=== PATIENT | female | born 1990 | race Caucasian/White ===

== ENCOUNTER 2016-08-25 12:45 | Emergency (ER) | payer MEDICAID, OTHER ==
[~2016-08-25] VITALS: Ht 182.9 cm; Wt 86.2 kg
[~2016-08-25 12:45] MED LIST: ALPR0.5T PO; AMOX500T PO; BUPR75TA5 PO; ESCI5TAB8 PO; HYDR-971 PO; METH-37 PO; NAPR500T3 PO; PRED20TA PO; TRAM50TA PO
[2016-08-25 12:57] VITALS: BP 138/87
--- NOTE | 2016-08-25 13:15 | PHYS DOC ---
Past History Past Medical History: Anxiety, Depression Past Surgical History: Appendectomy Alcohol Use: None Drug Use: None Adult General Chief Complaint Chief Complaint: tooth pain HPI HPI Patient is a 25-year-old female brought in by a lady who she states is her [id number] for the complaint of tooth pain. Patient states that she has had a previous root canal in this tooth, and her dentist believes that she might have a root canal failure. Her dentist prescribed Tylenol 3 and referred her to a specialist. She has an appointment coming up on August 28. Her dentist did not want to put her on antibiotics, wanted the specialist to see her "without any antibiotics". Patient states she had one root canal about 2 years ago and another about 3 years ago. She previously had an eating disorder so has a lot of dental problems. Patient states in the past, tramadol caused her to have itching. Review of Systems Review of Systems Constitutional: Denies fever or chills [] HENT: Pain isolated to one tooth as in history of present illness Neurologic: Denies headache Allergies Allergies Allergies Coded Allergies Type Severity Reaction Last Updated Verified tramadol Allergy Mild Itching 08/25/16 Yes Physical Exam Physical Exam Constitutional: Well developed, well nourished, no acute distress, non-toxic appearance. Alert, mentating normally, no distress whatsoever, handling secretions normally, no difficulty talking. HENT: Normocephalic, atraumatic, bilateral external ears normal, oropharynx moist, no oral exudates, patient indicates pain in the right lower first molar. It appears to have a previous crown in place. There is no redness, no swelling, no drainage, around the base of the tooth or in the area of the root. Remainder of oral exam also unremarkable, nose normal. [] Eyes: conjunctiva normal, no discharge. [] Neck: Normal range of motion, no masses or lymphadenopathy, nontender to palpation, no stridor. [] Skin: Warm, dry, no erythema, no rash. [] Extremities: No tenderness, no cyanosis, no clubbing, ROM intact, no edema. [] Neurologic: Alert and oriented X 3, normal motor function, normal sensory function, no focal deficits noted. [] Current Patient Data Vital Signs Vital Signs Date Time Temp Pulse Resp B/P Pulse Ox O2 Delivery O2 Flow Rate FiO2 08/25/16 12:57 97.8 78 12 100 Room Air EKG EKG [] Radiology/Procedures Radiology/Procedures [] Course & Med Decision Making Course & Med Decision Making Pertinent Labs and Imaging studies reviewed. (See chart for details) 25-year-old female complains of tooth pain in a tooth with a previous root canal , states her dentist prescribed Tylenol No. 3 and she is out of it. I advised the patient that we are not able to offer any dental services, and if her dentist had avoided antibiotics, I do not see any clinical indication for antibiotics and I would withhold them at this time as well under her dentist's recommendation. I advised her that I don't believe further opiate therapy is indicated from the emergency department, discussed the use of ibuprofen 800 mg for pain. Despite having said on arrival that she had itching secondary to tramadol the past, she approached nursing staff asking if I would write her prescription for tramadol, was advised that prior itching is a contraindication to tramadol prescription as it may be an allergic reaction. I noted that the patient was last seen for tooth pain in February 2016 at which time she stated she was about to have a root canal. On history, however, she told me that she had a root canal 2 years ago and another one 3 years ago. I'm concerned with this inconsistency of history that there may be some element of drug-seeking behavior in this presentation. I explained to her that not typically prescribe opiates from the emergency department for dental complaints. She is discharged with the offer of her prescription for ibuprofen 800 mg but she declined that, states she has ibuprofen at home and can take that dosage. [] Dragon Disclaimer Dragon Disclaimer This chart was dictated in whole or in part using Voice Recognition software in a busy, high-work load, and often noisy Emergency Department environment. It may contain unintended and wholly unrecognized errors or omissions. Departure Departure: Impression: Primary Impression: Dentalgia Disposition: HOME, SELF-CARE Condition: STABLE Referrals: PCP,PÉREZ (PCP) Additional Instructions: As we discussed, ibuprofen 800 mg every 6-8 hours with food or drink for pain. Make sure you follow up with the specialist on Saturday that you were referred to. ALEXA AVILA MD Aug 25, 2016 13:15
== END 2016-08-25 13:24 | disposition home or self-care (01) ==
LOC: ER 12:45
DX: K08.89 Other specified disorders of teeth and supporting structures (principal); Z88.6 Allergy status to analgesic agent
CPT/HCPCS: 99281

== ENCOUNTER 2018-09-16 16:25 | Emergency (ER) | payer OTHER ==
[~2018-09-16] VITALS: Ht 182.9 cm; Wt 86.2 kg
[~2018-09-16 16:25] MED LIST changes: -ESCI5TAB8 PO; +HYDR-3165 PO; -HYDR-971 PO; +LEXAPRO5 MG PO; +NAPR-514 PO; -NAPR500T3 PO
[2018-09-16] MEDS ORDERED: IV NORMAL SALINE 1,000ML 1,000 ML IV ONE (16:45)
[2018-09-16 17:14] LABS: BASO # 0.1 x10^3/uL (0.0-0.2); BASO % 1 % (0-3); EOS # 0.2 x10^3/uL (0.0-0.7); EOS % 2 % (0-3); HEMATOCRIT 39.3 % (36.0-47.0); HEMOGLOBIN 13.6 g/dL (12.0-15.5); LYMPH # 2.1 x10^3/uL (1.0-4.8); LYMPH % 22 % (24-48); MEAN CORPUSCULAR HEMOGLOBIN 30 pg (25-35); MEAN CORPUSCULAR HGB CONC 35 g/dL (31-37); MEAN CORPUSCULAR VOLUME 85 fL (79-100); MONO # 0.7 x10^3/uL (0.0-1.1); MONO % 7 % (0-9); NEUT # 6.7 x10^3uL (1.8-7.7); NEUT % 69 % (31-73); PLATELET COUNT 230 x10^3/uL (140-400); RED BLOOD COUNT 4.61 x10^6/uL (3.50-5.40); RED CELL DISTRIBUTION WIDTH 12.9 % (11.5-14.5); WHITE BLOOD COUNT 9.8 x10^3/uL (4.0-11.0)
[2018-09-16 17:26] LABS: CALCIUM 9.2 mg/dL (8.5-10.1); CREATININE 0.6 mg/dL (0.6-1.0); GFR 119.9; MAGNESIUM 1.8 mg/dL (1.8-2.4); POTASSIUM 3.8 mmol/L (3.5-5.1)
[2018-09-16 17:30] VITALS: BP 136/86
--- NOTE | 2018-09-16 17:48 | PHYS DOC ---
Past History Past Medical History: Anxiety, Depression (CHRISTIAN FAM DO) Past Surgical History: Appendectomy (CHRISTIAN FAM DO) Smoking: Cigarettes Alcohol Use: None Drug Use: None (CHRISTIAN FAM DO) Adult General Chief Complaint Chief Complaint: VAGINAL BLEEDING HPI HPI 27-year-old female presents with 1 hour history of vaginal bleeding in . Patient reports she is approximately 11 weeks gestation. Per patient she has confirmed by her physician with prior ultrasound with good heartbeat. Denies vaginal discharge. Denies fever or chills. Denies known trauma. Denies nausea/vomiting/diarrhea. Denies lightheadedness or dizziness. (CHRISTIAN FAM DO) Review of Systems Review of Systems Constitutional: Denies fever or chills Eyes: Denies redness or eye pain HENT: Denies nasal congestion or sore throat Respiratory: Denies cough or shortness of breath Cardiovascular: Denies chest pain or palpitations GI: Denies abdominal pain, nausea, or vomiting /CLINICAL STAFF RN: Denies dysuria or hematuria; reports vaginal bleeding in Musculoskeletal: Denies back pain or joint pain Integument: Denies rash or skin lesions Neurologic: Denies headache, focal weakness or sensory changes Complete systems were reviewed and found to be within normal limits, except as documented in this note. (CHRISTIAN FAM DO) Current Medications Current Medications Current Medications Medications (Trade) Dose Ordered Sig/Sanna Start Time Stop Time Status Last Admin Dose Admin Sodium Chloride 1,000 ml @ 1,000 mls/hr 1X ONCE 09/16/18 16:45 09/16/18 17:44 DC 09/16/18 17:04 1,000 MLS/HR (CHRISTIAN FAM DO) Allergies Allergies Allergies Coded Allergies Type Severity Reaction Last Updated Verified tramadol Allergy Mild Itching 08/25/16 Yes (CHRISTIAN FAM DO) Physical Exam Physical Exam Constitutional: Well developed, well nourished, anxious, non-toxic appearance HENT: Normocephalic, atraumatic, oropharynx moist Eyes: PERRL, EOMI, conjunctiva normal, no discharge Neck: Normal range of motion, no tenderness, supple Cardiovascular: Heart rate normal, regular rhythm Lungs & Thorax: Bilateral breath sounds clear to auscultation, no wheezing Abdomen: Soft, no tenderness CLINICAL STAFF RN: Deferred to Dr. Saleh Skin: Warm, dry, no erythema, no rash Extremities: No tenderness, ROM intact, no edema Neurologic: Alert and oriented X 3, no focal deficits noted, Psychiatric: mood anxious; judgement normal (CHRISTIAN FAM DO) Current Patient Data Vital Signs Vital Signs Date Time Temp Pulse Resp B/P (MAP) Pulse Ox O2 Delivery O2 Flow Rate FiO2 09/16/18 16:50 98.2 103 16 97 Room Air Lab Results Laboratory Tests Test 09/16/18 16:57 White Blood Count 9.8 x10^3/uL (4.0-11.0) Red Blood Count 4.61 x10^6/uL (3.50-5.40) Hemoglobin 13.6 g/dL (12.0-15.5) Hematocrit 39.3 % (36.0-47.0) Mean Corpuscular Volume 85 fL (79-100) Mean Corpuscular Hemoglobin 30 pg (25-35) Mean Corpuscular Hemoglobin Concent 35 g/dL (31-37) Red Cell Distribution Width 12.9 % (11.5-14.5) Platelet Count 230 x10^3/uL (140-400) Neutrophils (%) (Auto) 69 % (31-73) Lymphocytes (%) (Auto) 22 % (24-48) L Monocytes (%) (Auto) 7 % (0-9) Eosinophils (%) (Auto) 2 % (0-3) Basophils (%) (Auto) 1 % (0-3) Neutrophils # (Auto) 6.7 x10^3uL (1.8-7.7) Lymphocytes # (Auto) 2.1 x10^3/uL (1.0-4.8) Monocytes # (Auto) 0.7 x10^3/uL (0.0-1.1) Eosinophils # (Auto) 0.2 x10^3/uL (0.0-0.7) Basophils # (Auto) 0.1 x10^3/uL (0.0-0.2) Sodium Level 136 mmol/L (136-145) Potassium Level 3.8 mmol/L (3.5-5.1) Chloride Level 101 mmol/L (98-107) Carbon Dioxide Level 22 mmol/L (21-32) Anion Gap 13 (6-14) Blood Urea Nitrogen 7 mg/dL (7-20) Creatinine 0.6 mg/dL (0.6-1.0) Estimated GFR (Cockcroft-Gault) 119.9 Glucose Level 96 mg/dL (70-99) Calcium Level 9.2 mg/dL (8.5-10.1) Magnesium Level 1.8 mg/dL (1.8-2.4) (CHRISTIAN FAM DO) EKG EKG [] (CHRISTIAN FAM DO) Radiology/Procedures Radiology/Procedures [] (CHRISTIAN FAM DO) Impressions: PROCEDURE: OB <14 WKS W/TV OB ultrasound dated 09/16/2018. No comparison available. CLINICAL INDICATION: Vaginal bleeding. FINDINGS: Transabdominal and transvaginal imaging was performed. Gestational sac and pole within the endometrial canal. [place]-rump length measures 4.5 cm, correlating with 11 week 2 day gestation. Gestational sac measures 4.7 cm, correlating with a 10 week 2 day gestation. Overall, the estimated sonographic gestational age is 10 weeks 6 days with estimated date of delivery of 04/08/2019. Gestational sac is normal in morphology. There is a moderate to large heterogeneous collection along the anterior margin of the gestational sac measures up to 5.6 cm maximum dimension. No internal color flow. And neck fluid volume appears appropriate. The placenta is not well evaluated. Yolk sac is seen. Heart rate 158 bpm. Right ovary measures 3.5 x 2.4 x 3.7 cm. Left ovary measures 4.3 x 3.7 x 1.6 cm. No adnexal mass or free fluid. IMPRESSION: 1. Single viable intrauterine gestation with estimated sonographic gestational age of 10 weeks 6 days. 2. Heterogeneous moderate size subchorionic hematoma, age indeterminate. Electronically signed by: Christian Wilson MD (09/16/2018 7:06 PM) [facility] (XENIA SALEH Jr. DO) Course & Med Decision Making Course & Med Decision Making Patient presents as Ab0 with report of vaginal bleeding in at approximately 11 weeks. Labs obtained and posted to chart. UA pending. Rh+. Pelvic exam pending. OB ultrasound also pending. Sign out given to Dr. Saleh for further evaluation and final disposition. Discussed current findings and plan with patient and family, who acknowledge understanding and agreement. (FAM,CHRISTIAN Griffin Disclaimer Dragon Disclaimer This electronic medical record was generated, in whole or in part, using a voice recognition dictation system. (CHRISTIAN FAM DO) Departure Departure: Impression: Primary Impression: Threatened miscarriage Additional Impression: Subchorionic hemorrhage Disposition: 01 HOME, SELF-CARE Condition: STABLE Referrals: CORIN PALOMARES APRN (PCP) Patient Instructions: Subchorionic Hematoma, Vaginal Bleeding During , First Trimester Problem Qualifiers Additional Impression: Subchorionic hemorrhage Fetus number: single or unspecified fetus Trimester: first trimester Qualified Codes: O41.8X10 - Other specified disorders of amniotic fluid and membranes, first trimester, not applicable or unspecified; O46.8X1 - Other antepartum hemorrhage, first trimester CHRISTIAN FAM DO September 16, 2018 17:48 XENIA SALEH Jr., DO September 16, 2018 19:20
--- NOTE | 2018-09-16 19:08 | RAD ---
OB ultrasound dated 09/16/2018. No comparison available. CLINICAL INDICATION: Vaginal bleeding. FINDINGS: Transabdominal and transvaginal imaging was performed. Gestational sac and pole within the endometrial canal. [place]-rump length measures 4.5 cm, correlating with 11 week 2 day gestation. Gestational sac measures 4.7 cm, correlating with a 10 week 2 day gestation. Overall, the estimated sonographic gestational age is 10 weeks 6 days with estimated date of delivery of 04/08/2019. Gestational sac is normal in morphology. There is a moderate to large heterogeneous collection along the anterior margin of the gestational sac measures up to 5.6 cm maximum dimension. No internal color flow. And neck fluid volume appears appropriate. The placenta is not well evaluated. Yolk sac is seen. Heart rate 158 bpm. Right ovary measures 3.5 x 2.4 x 3.7 cm. Left ovary measures 4.3 x 3.7 x 1.6 cm. No adnexal mass or free fluid. IMPRESSION: 1. Single viable intrauterine gestation with estimated sonographic gestational age of 10 weeks 6 days. 2. Heterogeneous moderate size subchorionic hematoma, age indeterminate. Electronically signed by: Christian Wilson MD (09/16/2018 7:06 PM) [facility]
[2018-09-16 19:35] LABS: BACTERIA,URINE MANY /HPF (0-FEW); BILIRUBIN,URINE NEG (NEG); CLARITY,URINE CLEAR; COLOR,URINE STRAW; GLUCOSE,URINE NEG (NEG); NITRITE,URINE POS (NEG); UROBILINOGEN,URINE 0.2 mg/dL (0.2 mg/dL)
[2018-09-16 19:36] LABS: SQUAMOUS EPITHELIAL CELL,UR OCC /LPF
== END 2018-09-16 19:23 | disposition home or self-care (01) ==
LOC: ER 16:25
DX: O20.0 Threatened abortion (principal); O41.8X10 Other specified disorders of amniotic fluid and membranes, first trimester, not applicable or unspecified; O46.8X1 Other antepartum hemorrhage, first trimester; O99.341 Other mental disorders complicating pregnancy, first trimester; F41.9 Anxiety disorder, unspecified; F32.9 Major depressive disorder, single episode, unspecified; O99.331 Smoking (tobacco) complicating pregnancy, first trimester; Z3A.10 10 weeks gestation of pregnancy; Z88.6 Allergy status to analgesic agent
CPT/HCPCS: 36415; 76801; 76817; 80048; 81001; 83735; 84702; 85025; 86901; 87086; 87186; 99285-25; J7030

== ENCOUNTER 2018-09-27 22:14 | Emergency (ER) | payer OTHER ==
[~2018-09-27] VITALS: Ht 185.4 cm; Wt 86.2 kg
--- NOTE | 2018-09-27 22:22 | ED.ADGEN ---
Past History Past Medical History: Anxiety, Depression Past Surgical History: Appendectomy Smoking: Cigarettes Alcohol Use: None Drug Use: None Adult General Chief Complaint Chief Complaint ".. I am having more blood clots.. I called my Dr. .. Dr. Arana.. and she said come in and get checked.. I was here on 05/23.. for norberto similar thing.. but having more clots now..." HPI HPI Patient is a 27 year old female who presents with above hx and complaints of vaginal bleeding, cramping and 13 + weeks . Pt. is G -2, one live , induced at 36 weeks due to Pre-eclampsia ( 7#1oz). No hx of STD's, Ten Life time sexual partners. Recently completed course of antibiotics for E-coli UTI. Pt. Follows with Dr. Arana. Prior ED visit found to have IUP and Subchorionic hemorrhage. Pt. presents tonight with continued episode of periodic clots. Has gone through 2-3 pads per day. No hx of trauma. No travel or specific ill contacts. No hx of immunosuppression. Review of Systems Review of Systems Constitutional: Denies fever or chills [] Eyes: Denies change in visual acuity, redness, or eye pain [] HENT: Denies nasal congestion or sore throat [] Respiratory: Denies cough or shortness of breath [] Cardiovascular: No additional information not addressed in HPI [] GI: Periodic abdomen cramping,, nausea, . Denies vomiting, bloody stools or diarrhea [] : Denies dysuria or hematuria [] Musculoskeletal: Denies back pain or joint pain [] Integument: Denies rash or skin lesions [] Neurologic: Denies headache, focal weakness or sensory changes [] Endocrine: Denies polyuria or polydipsia [] All other systems were reviewed and found to be within normal limits, except as documented in this note. Family History Family History Noncontributory Current Medications Current Medications Current Medications Medications (Trade) Dose Ordered Sig/Sanna Start Time Stop Time Status Last Admin Dose Admin Lactated Ringer's 1,000 ml @ 1,000 mls/hr Q1H 09/27/18 22:45 09/27/18 23:44 DC 09/28/18 00:19 1,000 MLS/HR Magnesium Hydroxide (Milk Of Magnesia) 2,400 mg 1X ONCE 09/27/18 22:45 09/27/18 22:48 DC 09/28/18 00:19 2,400 MG Allergies Allergies Allergies Coded Allergies Type Severity Reaction Last Updated Verified tramadol Allergy Mild Itching 09/27/18 Yes Physical Exam Physical Exam Constitutional: Well developed, well nourished, no acute distress, non-toxic appearance. [] HENT: Normocephalic, atraumatic, bilateral external ears normal, oropharynx moist, no oral exudates, nose normal. [] Eyes: PERRLA, EOMI, conjunctiva normal, no discharge. [] Neck: Normal range of motion, no tenderness, supple, no stridor. [] Cardiovascular:Heart rate regular rhythm, no murmur [] Lungs & Thorax: Bilateral breath sounds clear to auscultation [] Abdomen: Bowel sounds normal, soft, no tenderness, no masses, no pulsatile masses. [] Os is closed. Does some spotting from os. No cervical motion tenderness. Rectal - hard stool. Gravid Skin: Warm, dry, no erythema, no rash. [] Back: No tenderness, no CVA tenderness. [] Extremities: No tenderness, no cyanosis, no clubbing, ROM intact, no edema. [] Neurologic: Alert and oriented X 3, normal motor function, normal sensory function, no focal deficits noted. []DTR + 2 Patella and brachial. Psychologic: Affect anxious, judgement normal, mood normal. [] Current Patient Data Vital Signs Vital Signs Date Time Temp Pulse Resp B/P (MAP) Pulse Ox O2 Delivery O2 Flow Rate FiO2 09/27/18 22:25 99.3 92 20 128/74 (92) 98 Room Air Lab Results Laboratory Tests Test 09/27/18 22:55 09/27/18 23:20 White Blood Count 12.4 x10^3/uL (4.0-11.0) H Red Blood Count 4.21 x10^6/uL (3.50-5.40) Hemoglobin 12.0 g/dL (12.0-15.5) Hematocrit 35.9 % (36.0-47.0) L Mean Corpuscular Volume 85 fL (79-100) Mean Corpuscular Hemoglobin 29 pg (25-35) Mean Corpuscular Hemoglobin Concent 34 g/dL (31-37) Red Cell Distribution Width 13.0 % (11.5-14.5) Platelet Count 212 x10^3/uL (140-400) Neutrophils (%) (Auto) 79 % (31-73) H Lymphocytes (%) (Auto) 14 % (24-48) L Monocytes (%) (Auto) 7 % (0-9) Eosinophils (%) (Auto) 1 % (0-3) Basophils (%) (Auto) 0 % (0-3) Neutrophils # (Auto) 9.8 x10^3uL (1.8-7.7) H Lymphocytes # (Auto) 1.7 x10^3/uL (1.0-4.8) Monocytes # (Auto) 0.8 x10^3/uL (0.0-1.1) Eosinophils # (Auto) 0.1 x10^3/uL (0.0-0.7) Basophils # (Auto) 0.0 x10^3/uL (0.0-0.2) Prothrombin Time 9.5 SEC (9.4-11.4) Prothrombin Time INR 1.0 (0.9-1.1) PTT 26 SEC (23-33) Maternal Serum HCG Beta Subunit 24802 mIU/mL (0-6) H Sodium Level 138 mmol/L (136-145) Potassium Level 3.4 mmol/L (3.5-5.1) L Chloride Level 102 mmol/L (98-107) Carbon Dioxide Level 23 mmol/L (21-32) Anion Gap 13 (6-14) Blood Urea Nitrogen 6 mg/dL (7-20) L Creatinine 0.6 mg/dL (0.6-1.0) Estimated GFR (Cockcroft-Gault) 119.9 Glucose Level 108 mg/dL (70-99) H Calcium Level 9.6 mg/dL (8.5-10.1) Total Bilirubin 0.2 mg/dL (0.2-1.0) Direct Bilirubin < 0.1 mg/dL (0.0-0.2) Aspartate Amino Transferase (AST) 16 U/L (15-37) Alanine Aminotransferase (ALT) 20 U/L (14-59) Alkaline Phosphatase 57 U/L (46-116) Total Protein 7.0 g/dL (6.4-8.2) Albumin 3.1 g/dL (3.4-5.0) L Urine Opiates Screen Neg (NEG) Urine Methadone Screen Neg (NEG) Urine Barbiturates Neg (NEG) Urine Phencyclidine Screen Neg (NEG) Urine Amphetamine/Methamphetamine Neg (NEG) Urine Benzodiazepines Screen Neg (NEG) Urine Cocaine Screen Neg (NEG) Urine Cannabinoids Screen Neg (NEG) Urine Ethyl Alcohol Neg (NEG) Urine Collection Type Void Urine Color Yellow Urine Clarity Clear Urine pH 6.0 Urine Specific [place] 1.020 Urine Protein Neg (NEG-TRACE) Urine Glucose (UA) Neg mg/dL (NEG) Urine Ketones (Stick) Neg mg/dL (NEG) Urine Blood Mod (NEG) Urine Nitrite Neg (NEG) Urine Bilirubin Neg (NEG) Urine Urobilinogen Dipstick 0.2 mg/dL (0.2 mg/dL) Urine Leukocyte Esterase Neg (NEG) Urine RBC 6-10 /HPF (0-2) Urine WBC Occ /HPF (0-4) Urine Squamous Epithelial Cells Occ /LPF Urine Bacteria Few /HPF (0-FEW) Microbiology 09/27/18 Wet Prep - Final, Complete Laboratory Tests Test 09/27/18 22:55 09/27/18 23:20 White Blood Count 12.4 x10^3/uL (4.0-11.0) H Red Blood Count 4.21 x10^6/uL (3.50-5.40) Hemoglobin 12.0 g/dL (12.0-15.5) Hematocrit 35.9 % (36.0-47.0) L Mean Corpuscular Volume 85 fL (79-100) Mean Corpuscular Hemoglobin 29 pg (25-35) Mean Corpuscular Hemoglobin Concent 34 g/dL (31-37) Red Cell Distribution Width 13.0 % (11.5-14.5) Platelet Count 212 x10^3/uL (140-400) Neutrophils (%) (Auto) 79 % (31-73) H Lymphocytes (%) (Auto) 14 % (24-48) L Monocytes (%) (Auto) 7 % (0-9) Eosinophils (%) (Auto) 1 % (0-3) Basophils (%) (Auto) 0 % (0-3) Neutrophils # (Auto) 9.8 x10^3uL (1.8-7.7) H Lymphocytes # (Auto) 1.7 x10^3/uL (1.0-4.8) Monocytes # (Auto) 0.8 x10^3/uL (0.0-1.1) Eosinophils # (Auto) 0.1 x10^3/uL (0.0-0.7) Basophils # (Auto) 0.0 x10^3/uL (0.0-0.2) Prothrombin Time 9.5 SEC (9.4-11.4) Prothrombin Time INR 1.0 (0.9-1.1) PTT 26 SEC (23-33) Maternal Serum HCG Beta Subunit 07613 mIU/mL (0-6) H Sodium Level 138 mmol/L (136-145) Potassium Level 3.4 mmol/L (3.5-5.1) L Chloride Level 102 mmol/L (98-107) Carbon Dioxide Level 23 mmol/L (21-32) Anion Gap 13 (6-14) Blood Urea Nitrogen 6 mg/dL (7-20) L Creatinine 0.6 mg/dL (0.6-1.0) Estimated GFR (Cockcroft-Gault) 119.9 Glucose Level 108 mg/dL (70-99) H Calcium Level 9.6 mg/dL (8.5-10.1) Total Bilirubin 0.2 mg/dL (0.2-1.0) Direct Bilirubin < 0.1 mg/dL (0.0-0.2) Aspartate Amino Transferase (AST) 16 U/L (15-37) Alanine Aminotransferase (ALT) 20 U/L (14-59) Alkaline Phosphatase 57 U/L (46-116) Total Protein 7.0 g/dL (6.4-8.2) Albumin 3.1 g/dL (3.4-5.0) L Urine Opiates Screen Neg (NEG) Urine Methadone Screen Neg (NEG) Urine Barbiturates Neg (NEG) Urine Phencyclidine Screen Neg (NEG) Urine Amphetamine/Methamphetamine Neg (NEG) Urine Benzodiazepines Screen Neg (NEG) Urine Cocaine Screen Neg (NEG) Urine Cannabinoids Screen Neg (NEG) Urine Ethyl Alcohol Neg (NEG) Urine Collection Type Void Urine Color Yellow Urine Clarity Clear Urine pH 6.0 Urine Specific [place] 1.020 Urine Protein Neg (NEG-TRACE) Urine Glucose (UA) Neg mg/dL (NEG) Urine Ketones (Stick) Neg mg/dL (NEG) Urine Blood Mod (NEG) Urine Nitrite Neg (NEG) Urine Bilirubin Neg (NEG) Urine Urobilinogen Dipstick 0.2 mg/dL (0.2 mg/dL) Urine Leukocyte Esterase Neg (NEG) Urine RBC 6-10 /HPF (0-2) Urine WBC Occ /HPF (0-4) Urine Squamous Epithelial Cells Occ /LPF Urine Bacteria Few /HPF (0-FEW) Microbiology 09/27/18 Wet Prep - Final, Complete EKG EKG [] Radiology/Procedures Radiology/Procedures Subchorionic hematoma is approximately 4.4 x 3.1 x 2.3 cm. [][place] [address] IMAGING REPORT Signed PATIENT: STEPHAN DEVRIES ACCOUNT: [id number] : 1990 LOCATION: ER AGE: 27 SEX: F EXAM STATUS: REG ER ORD. PHYSICIAN: HAYDEE ABDALLA MD REASON: bleeding, est 11 weeks PROCEDURE: OB <14 WKS W/TV INDICATION: Vaginal bleeding COMPARISON: September 16, 2018 TECHNIQUE: Grayscale and color ultrasound images uterus and adnexa. Transabdominal and transvaginal images obtained. FINDINGS: The maternal ovaries are obscured. Uterus is 141 x 75 x 83 mm. Intrauterine is identified with a pole with crown-rump length of 72 mm and heart beat of 168. Hypoechoic region is seen inferior to gestational sac near cervical region measuring up to 44 x 31 mm. Gestational sac unremarkable in appearance. IMPRESSION: 1. Intrauterine is identified with estimated gestational age of 13 weeks and 3 days with a positive heartbeat. There is a large hypoechoic region seen adjacent to the gestational sac and extending into the cervical region concerning for a large subchorionic hematoma. Close follow-up will be needed given this finding. Electronically signed by: Pepito Ventura MD (09/28/2018 12:40 AM) [facility] DICTATED AND SIGNED BY: PEPITO VENTURA MD DATE: 09/28/18 0040 CC: HAYDEE ABDALLA MD; CORIN ARANA APRN ~ Course & Med Decision Making Course & Med Decision Making Pertinent Labs and Imaging studies reviewed. (See chart for details) Patient continue pad counts. Patient follow-up pending cultures and labs. Patient keep follow-up with Macy Arana. [] Final Impression Final Impression 1. Threaten Miscarry. [] 2. IUP 13weeks 3 days 3. BHCG= 43,905 4. Hgb 12.0 5.Mother B + rH 6.EDC= 04/01/19 7. Mild Hypokalemia 3.4 8. Leukocytosis 12.4 9. Subchorionic Hemorrhage- tonight appears to be 4.4 x 3.1 x 2.3 cm 10.Constipation Dragon Disclaimer Dragon Disclaimer This electronic medical record was generated, in whole or in part, using a voice recognition dictation system. Discharge Summary Visit Information Final Diagnosis Problems Medical Problems: (1) Threatened Status: Acute Brief Hospital Course Allergies Allergies Coded Allergies Type Severity Reaction Last Updated Verified tramadol Allergy Mild Itching 09/27/18 Yes Vital Signs Vital Signs Date Time Temp Pulse Resp B/P (MAP) Pulse Ox O2 Delivery O2 Flow Rate FiO2 09/27/18 22:25 99.3 92 20 128/74 (92) 98 Room Air Lab Results Laboratory Tests Test 09/27/18 22:55 09/27/18 23:20 White Blood Count 12.4 x10^3/uL (4.0-11.0) Red Blood Count 4.21 x10^6/uL (3.50-5.40) Hemoglobin 12.0 g/dL (12.0-15.5) Hematocrit 35.9 % (36.0-47.0) Mean Corpuscular Volume 85 fL (79-100) Mean Corpuscular Hemoglobin 29 pg (25-35) Mean Corpuscular Hemoglobin Concent 34 g/dL (31-37) Red Cell Distribution Width 13.0 % (11.5-14.5) Platelet Count 212 x10^3/uL (140-400) Neutrophils (%) (Auto) 79 % (31-73) Lymphocytes (%) (Auto) 14 % (24-48) Monocytes (%) (Auto) 7 % (0-9) Eosinophils (%) (Auto) 1 % (0-3) Basophils (%) (Auto) 0 % (0-3) Neutrophils # (Auto) 9.8 x10^3uL (1.8-7.7) Lymphocytes # (Auto) 1.7 x10^3/uL (1.0-4.8) Monocytes # (Auto) 0.8 x10^3/uL (0.0-1.1) Eosinophils # (Auto) 0.1 x10^3/uL (0.0-0.7) Basophils # (Auto) 0.0 x10^3/uL (0.0-0.2) Prothrombin Time 9.5 SEC (9.4-11.4) Prothromb Time International Ratio 1.0 (0.9-1.1) Activated Partial Thromboplast Time 26 SEC (23-33) Maternal Serum HCG Beta Subunit 95350 mIU/mL (0-6) Sodium Level 138 mmol/L (136-145) Potassium Level 3.4 mmol/L (3.5-5.1) Chloride Level 102 mmol/L (98-107) Carbon Dioxide Level 23 mmol/L (21-32) Anion Gap 13 (6-14) Blood Urea Nitrogen 6 mg/dL (7-20) Creatinine 0.6 mg/dL (0.6-1.0) Estimated GFR (Cockcroft-Gault) 119.9 Glucose Level 108 mg/dL (70-99) Calcium Level 9.6 mg/dL (8.5-10.1) Total Bilirubin 0.2 mg/dL (0.2-1.0) Direct Bilirubin < 0.1 mg/dL (0.0-0.2) Aspartate Amino Transf (AST/SGOT) 16 U/L (15-37) Alanine Aminotransferase (ALT/SGPT) 20 U/L (14-59) Alkaline Phosphatase 57 U/L (46-116) Total Protein 7.0 g/dL (6.4-8.2) Albumin 3.1 g/dL (3.4-5.0) Urine Opiates Screen Neg (NEG) Urine Methadone Screen Neg (NEG) Urine Barbiturates Neg (NEG) Urine Phencyclidine Screen Neg (NEG) Urine Amphetamine/Methamphetamine Neg (NEG) Urine Benzodiazepines Screen Neg (NEG) Urine Cocaine Screen Neg (NEG) Urine Cannabinoids Screen Neg (NEG) Urine Ethyl Alcohol Neg (NEG) Urine Collection Type Void Urine Color Yellow Urine Clarity Clear Urine pH 6.0 Urine Specific [place] 1.020 Urine Protein Neg (NEG-TRACE) Urine Glucose (UA) Neg mg/dL (NEG) Urine Ketones (Stick) Neg mg/dL (NEG) Urine Blood Mod (NEG) Urine Nitrite Neg (NEG) Urine Bilirubin Neg (NEG) Urine Urobilinogen Dipstick 0.2 mg/dL (0.2 mg/dL) Urine Leukocyte Esterase Neg (NEG) Urine RBC 6-10 /HPF (0-2) Urine WBC Occ /HPF (0-4) Urine Squamous Epithelial Cells Occ /LPF Urine Bacteria Few /HPF (0-FEW) Brief Hospital Course Ms. Devries is a 27 old female who presented with threaten - IUP, BHCG 79602, HGB 12. B+, EDC- 04/01/19 FHR= 168, Subchoric Hemorrhage Keep follow up with Dr. Arana. Discharge Information Condition at Discharge: Stable Disposition/Orders: D/C to Home Dischare Medications Current Medications Lactated Ringer's 1,000 ml @ 1,000 mls/hr Q1H IV Last administered on 09/28/18at 00:19; Admin Dose 1,000 MLS/HR; Start 09/27/18 at 22:45; Stop 09/27/18 at 23:44; Status DC Magnesium Hydroxide (Milk Of Magnesia) 2,400 mg 1X ONCE PO Last administered on 09/28/18at 00:19; Admin Dose 2,400 MG; Start 09/27/18 at 22:45; Stop 09/27/18 at 22:48; Status DC Active Scripts Active Reported Tablet (Pnv Cmb#95/Ferrous Fumarate/Fa) 1 Each Tablet 1 Each PO DAILY Zofran (Ondansetron Hcl) 4 Mg Tablet 4 Mg PO Q6HRS Bonjesta ER 20-20 mg Tablet (Doxylamine Succinate/Vit B6) 1 Each Tab.ir.dr 1 Each PO DAILY Wellbutrin (Bupropion Hcl) 75 Mg Tablet 75 Mg PO Talishaon Disclaimer This chart was dictated in whole or in part using Voice Recognition software in a busy, high-work load, and often noisy Emergency Department environment. It may contain unintended and wholly unrecognized errors or omissions. HAYDEE ABDALLA MD Sep 27, 2018 22:22
[2018-09-27] MEDS ORDERED: IV RINGERS SOLUTION,LACTATED 1,000 ML IV SCH (22:45)
[2018-09-27] MEDS ORDERED: MAGNESIUM HYDROXIDE 2,400 MG/30 ML ORAL.SUSP. PO ONE (22:45)
[2018-09-27] MEDS ORDERED: PNV1TABL25 PO (23:26)
[2018-09-27] MEDS ORDERED: DOXY1TAB6 PO (23:26)
[2018-09-27] MEDS ORDERED: ONDA4TAB7 PO (23:26)
[2018-09-27 23:42] LABS: BASO % 0 % (0-3); EOS # 0.1 x10^3/uL (0.0-0.7); EOS % 1 % (0-3); HEMATOCRIT 35.9 % (36.0-47.0); LYMPH # 1.7 x10^3/uL (1.0-4.8); LYMPH % 14 % (24-48); MEAN CORPUSCULAR HEMOGLOBIN 29 pg (25-35); MEAN CORPUSCULAR HGB CONC 34 g/dL (31-37); MEAN CORPUSCULAR VOLUME 85 fL (79-100); MONO # 0.8 x10^3/uL (0.0-1.1); MONO % 7 % (0-9); NEUT # 9.8 x10^3uL (1.8-7.7); NEUT % 79 % (31-73); PLATELET COUNT 212 x10^3/uL (140-400); RED BLOOD COUNT 4.21 x10^6/uL (3.50-5.40); WHITE BLOOD COUNT 12.4 x10^3/uL (4.0-11.0)
[2018-09-27 23:48] LABS: BARBITURATES NEG (NEG); BENZODIAZEPINES NEG (NEG); CANNABINOIDS NEG (NEG); COCAINE NEG (NEG); METHADONE NEG (NEG); OPIATES NEG (NEG); PHENCYCLIDINE NEG (NEG)
[2018-09-27 23:50] LABS: AMPHETAMINE/METHAMPHETAMINE NEG (NEG)
[2018-09-27 23:52] LABS: ALBUMIN 3.1 g/dL (3.4-5.0); ALK PHOS 57 U/L (46-116); ALT (SGPT) 20 U/L (14-59); ANION GAP 13 (6-14); AST (SGOT) 16 U/L (15-37); BLOOD UREA NITROGEN 6 mg/dL (7-20); CALCIUM 9.6 mg/dL (8.5-10.1); CARBON DIOXIDE 23 mmol/L (21-32); CHLORIDE 102 mmol/L (98-107); CREATININE 0.6 mg/dL (0.6-1.0); DIRECT BILIRUBIN < 0.1 mg/dL (0.0-0.2); GFR 119.9; GLUCOSE 108 mg/dL (70-99); POTASSIUM 3.4 mmol/L (3.5-5.1); SODIUM 138 mmol/L (136-145); TOTAL BILIRUBIN 0.2 mg/dL (0.2-1.0)
[2018-09-27 23:56] LABS: BILIRUBIN,URINE NEG (NEG); CLARITY,URINE CLEAR; COLOR,URINE YELLOW; GLUCOSE,URINE NEG (NEG)
[2018-09-27 23:57] LABS: BACTERIA,URINE FEW /HPF (0-FEW); NITRITE,URINE NEG (NEG); SQUAMOUS EPITHELIAL CELL,UR OCC /LPF; UROBILINOGEN,URINE 0.2 mg/dL (0.2 mg/dL); WBC,URINE OCC /HPF (0-4)
--- NOTE | 2018-09-28 00:43 | RAD ---
INDICATION: Vaginal bleeding COMPARISON: September 16, 2018 TECHNIQUE: Grayscale and color ultrasound images uterus and adnexa. Transabdominal and transvaginal images obtained. FINDINGS: The maternal ovaries are obscured. Uterus is 141 x 75 x 83 mm. Intrauterine is identified with a pole with crown-rump length of 72 mm and heart beat of 168. Hypoechoic region is seen inferior to gestational sac near cervical region measuring up to 44 x 31 mm. Gestational sac unremarkable in appearance. IMPRESSION: 1. Intrauterine is identified with estimated gestational age of 13 weeks and 3 days with a positive heartbeat. There is a large hypoechoic region seen adjacent to the gestational sac and extending into the cervical region concerning for a large subchorionic hematoma. Close follow-up will be needed given this finding. Electronically signed by: Tim Pearson MD (09/28/2018 12:40 AM) [facility]
[2018-09-28 01:15] VITALS: BP 136/68
[2018-09-29 15:10] LABS: CHLAMYDIA PROBE Negative (Negative)
== END 2018-09-28 01:16 | disposition home or self-care (01) ==
LOC: ER 22:14
DX: O20.0 Threatened abortion (principal); O99.281 Endocrine, nutritional and metabolic diseases complicating pregnancy, first trimester; E87.6 Hypokalemia; O99.111 Other diseases of the blood and blood-forming organs and certain disorders involving the immune mechanism complicating pregnancy, first trimester; D72.829 Elevated white blood cell count, unspecified; K59.00 Constipation, unspecified; O99.341 Other mental disorders complicating pregnancy, first trimester; F41.9 Anxiety disorder, unspecified; F32.9 Major depressive disorder, single episode, unspecified; O99.331 Smoking (tobacco) complicating pregnancy, first trimester; Z88.6 Allergy status to analgesic agent; Z3A.13 13 weeks gestation of pregnancy
CPT/HCPCS: 36415; 76801; 76817; 80048; 80076; 80307; 81001; 84443; 84702; 85025; 85610; 85730; 86592; 86703; 86705; 86709; 86803; 86900; 86901; 87340; 87491; 87591; 99285; J7120; Q0111

== ENCOUNTER 2019-05-17 15:56 | Emergency (ER) | payer OTHER ==
[~2019-05-17] VITALS: Ht 185.4 cm; Wt 109.0 kg
[~2019-05-17 15:56] MED LIST changes: +DOXY1TAB6 PO; +ONDA4TAB7 PO; +PNV1TABL25 PO
[2019-05-17] MEDS ORDERED: LIDO15SO2 TOP (16:54)
[2019-05-17] MEDS ORDERED: HYDR30CR61 TP (16:54)
--- NOTE | 2019-05-17 16:54 | PHYS DOC ---
Past History Past Medical History: Anxiety, Constipation, Depression Past Surgical History: Appendectomy Smoking: Cigarettes Alcohol Use: None Drug Use: None Adult General Chief Complaint Chief Complaint: HEMORRHOIDS [facility] HPI Patient is a 28-year-old female who presents with complaint of rectal pain that she believes is associated with hemorrhoids. Patient recently had given to a child and had hemorrhoids throughout her . She states that currently she doesn't have any hemorrhoids that are protruding but she states even when there are no hemorrhoids, she has pain when she takes a bowel movement. She also indicates that she has discomfort in her abdomen when she is having a bowel movement. Currently she denies any abdominal pain. She also denies any nausea, vomiting or diarrhea.[] Review of Systems Review of Systems Constitutional: Denies fever or chills [] Respiratory: Denies cough or shortness of breath [] Cardiovascular: No additional information not addressed in HPI [] GI: Complains of intermittent abdominal pain without vomiting or diarrhea. Complains of rectal pain [] : Denies dysuria or hematuria [] Neurologic: Denies headache, focal weakness or sensory changes [] All other systems were reviewed and found to be within normal limits, except as documented in this note. Allergies Allergies Allergies Coded Allergies Type Severity Reaction Last Updated Verified tramadol Allergy Mild Itching 09/27/18 Yes Physical Exam Physical Exam Constitutional: Well developed, well nourished, no acute distress, non-toxic appearance. [] Cardiovascular:Heart rate regular rhythm, no murmur [] Lungs & Thorax: Bilateral breath sounds clear to auscultation [] Abdomen: Bowel sounds normal, soft, with minimal tenderness in the suprapubic and right abdomen. Rectal exam performed with nurse certified anesthesiologist assistant present and demonstrates no hemorrhoids. There does appear to be a small open wound at the 3 o'clock position in the anus which appears to be a fissure [] Skin: Warm, dry, no erythema, no rash. [] Current Patient Data Vital Signs Vital Signs Date Time Temp Pulse Resp B/P (MAP) Pulse Ox O2 Delivery O2 Flow Rate FiO2 05/17/19 16:06 98.1 75 16 98 Room Air EKG EKG [] Radiology/Procedures Radiology/Procedures [] Course & Med Decision Making Course & Med Decision Making Pertinent Labs and Imaging studies reviewed. (See chart for details) [] Dragon Disclaimer Dragon Disclaimer This electronic medical record was generated, in whole or in part, using a voice recognition dictation system. Departure Departure: Impression: Primary Impression: Anal fissure Disposition: 01 HOME, SELF-CARE Condition: STABLE Referrals: DIANE AC (PCP) Patient Instructions: Anal Fissure, Adult Scripts Lidocaine HCl (Lidocaine HCl Viscous) 15 Ml Solution 1-2 ML TOP Q4HRS PRN for rectal pain, #100 ML Prov: XENIA HARRISON Jr. DO 05/17/19 Hydrocortisone (ANUSOL-HC) 30 Gm Cream..g. 1 LAYLA TP BID for rectal pain, #30 GM 0 Refills Prov: XENIA HARRISON Jr. DO 05/17/19 XENIA HARRISON Jr. DO May 17, 2019 16:54
--- NOTE | 2019-05-17 17:35 | RAD ---
Two-view abdomen dated 05/17/2019. No comparison available. Clinical Indication: Abdominal pain. Findings: Flat and upright views of the abdomen show nondilated gas filled loops of bowel. No air-fluid level or pneumoperitoneum on the upright view. No abnormal calcifications are identified. Small amount stool throughout the colon. Impression abdomen: Non-obstructive bowel gas pattern. Electronically signed by: Christian Wilson MD (05/17/2019 5:32 PM) [facility]
[2019-05-17 17:59] VITALS: BP 134/67
== END 2019-05-17 17:58 | disposition home or self-care (01) ==
LOC: ER 15:56
DX: K60.2 Anal fissure, unspecified (principal); F17.210 Nicotine dependence, cigarettes, uncomplicated; Z88.6 Allergy status to analgesic agent
CPT/HCPCS: 74019; 99284